=== PATIENT | male | born 1950 | race Caucasian/White ===

== ENCOUNTER 2017-05-14 16:51 | Inpatient (IN) | payer MEDICARE ==
[2017-05-14 17:26] LABS: #Eosinphils 0.3 thou/uL (0.0-0.7); #Lymphocytes 2.2 thou/uL (1.20-3.40); #Monocytes 0.8 thou/uL (0.11-0.59); #Neutrophils 5.8 thou/uL (1.40-6.50); %Basophils 0.5 % (0.0-1.0); %Eosinophils 2.8 % (0.0-10.0); %Lymphocytes 24.3 % (21.0-51.0); %Monocytes 8.3 % (0.0-10.0); Hematocrit 46.5 % (42.0-52.0); Mean Platelet Volume 7.9 fL (7.4-10.4); Red Blood Cell (RBC) Count 4.83 mill/uL (4.70-6.10); White Blood Cell (WBC) Count 9.1 thou/uL (4.8-10.8)
[2017-05-14 17:49] LABS: ALT (SGPT) 24 U/L (8-55); AST (SGOT) 16 U/L (5-34); Alkaline Phosphatase 46 U/L (40-150); Anion Gap 14 mmol/L (10-20); BUN (Urea Nitrogen) 10 mg/dL (8.4-25.7); Bilirubin, Total 0.6 mg/dL (0.2-1.2); CK (CPK) 99 U/L (30-200); Calc. Creatinine Clearance 0 mL/min (70-130); Calcium 9.5 mg/dL (7.8-10.44); Carbon Dioxide 24 mmol/L (23-31); Chloride 104 mmol/L (98-107); Estimated GFR-MDRD 74; Globulin 2.8 g/dL (2.4-3.5); Lipase 13 U/L (8-78)
[2017-05-14 17:53] LABS: Troponin I Less than 0.010 ng/mL (< 0.028)
--- NOTE | 2017-05-14 19:31 | RAD ---
AP PORTABLE VIEW CHEST 05/14/17 HISTORY: Chest pain. AP view chest is obtained on 05/14/17. Comparison made to previous exam of 12/17/16. AP view chest demonstrates EKG leads seen over the chest. The lungs are well aerated. No evidence of active intrathoracic disease seen. No evidence of effusions, pneumonia or pneumothorax seen. IMPRESSION: Unremarkable AP view chest. POS: [facility]
[2017-05-14 20:54] LABS: Troponin I Less than 0.010 ng/mL (< 0.028)
[2017-05-14] MEDS ORDERED: Acetaminophen 325 MG TAB PO PRN (21:23)
[2017-05-14] MEDS ORDERED: Ondansetron ODT 4 MG TAB SL PRN (21:23)
[2017-05-14] MEDS ORDERED: Ondansetron HCl/PF 4 MG/2 ML Vial IVP PRN (21:23)
[2017-05-14 21:28] VITALS: BMI 29.5
--- NOTE | 2017-05-14 21:33 | PDOC.EVN ---
Event Note - Event Note Event Note: [id number] H&P DICTATED 1. Chest pain 2. Headache 3. HTN plan; see orders
[2017-05-14] MEDS ORDERED: HYDROcodone/Acetaminophen 10/325 mg Tablet PO PRN (22:26)
[2017-05-14] MEDS ORDERED: Dextrose 50% Abboject 50 ML SYRINGE SLOW IVP PRN (22:27)
[2017-05-14] MEDS ORDERED: HumaLOG 300 UNITS/3 ML VIAL SC PRN ×2 (22:27)
[2017-05-14] MEDS ORDERED: Dextrose 5% in Water 1,000 ML IV PRN (22:27)
[2017-05-14 23:57] LABS: Troponin I Less than 0.010 ng/mL (< 0.028)
[2017-05-15] MEDS: Nitroglycerin 2% Ointment 1 INCH/1 GM Packet TOP SCH ×3 (03:48→21:31)
[2017-05-15 05:29] LABS: Troponin I Less than 0.010 ng/mL (< 0.028)
--- NOTE | 2017-05-15 06:13 | HP ---
DATE OF ADMISSION: 05/14/2017 CHIEF COMPLAINT: Chest pain, headache. HISTORY OF PRESENT ILLNESS: Patient is a 67-year-old male with past medical history of hypertension, hyperlipidemia, diabetes type 2, coronary artery disease, now came to the ER complaining of chest pa in. Patient started having chest pain this afternoon, substernal pressure kind of pain, radiated tow ards the left arm also. Pain lasted for few seconds. Pain resolved after taking sublingual nitrogly cerin, moderate in intensity. Denies any palpations, denies any dizziness, denies any sweating, nanci es nausea, vomiting. The patient complains of an episode of headache this morning associated with so me nausea, but headache resolved later on. Denies any fever, denies any chills, denies any complaint s. PAST MEDICAL HISTORY: As per HPI. PAST SURGICAL HISTORY: Left knee surgery, finger surgery. SOCIAL HISTORY: Positive for smoking, positive for alcohol. Denies any illicit drugs. FAMILY HISTORY: Positive for heart problems. REVIEW OF SYSTEMS: Constitutional: Denies any fever, denies any chills. Eyes: Denies any vision p roblems. Ears: Denies any hearing loss. Neck: Positive for neck pain. Cardiovascular system: Po sitive for chest pain. Respiratory system: Denies any cough. Denies any sputum production. Gastro intestinal system: Denies any nausea, vomiting. Musculoskeletal: Positive for left arm pain. Cran ial Nervous System: Denies syncope. Positive for headache. Psychiatric: Denies any depression, an xiety. All other review of systems are reviewed and are negative. PHYSICAL EXAMINATION: CONSTITUTIONAL/VITAL SIGNS: At the time of H&P performed, blood pressure is 130/70, pulse ox 97%, re spiratory rate 18. GENERAL: The patient appears comfortable. HEENT: Pupils equal, round, and reactive. Anterior nares patent. Nose normal. Teeth intact. Tong ue is moist. NECK: Supple, no JVD. CARDIOVASCULAR SYSTEM: S1, S2 present. Regular rate and rhythm. No murmurs, no rubs, no gallops. RESPIRATORY SYSTEM: No wheezing, no rhonchi. Breath sounds present bilaterally. GASTROINTESTINAL SYSTEM: Abdomen is soft, nontender, no guarding, no organomegaly, no masses felt. INTEGUMENTARY: No rashes seen. PSYCHIATRIC: Mood appropriate at this time. LABORATORY DATA: At the time of H&P performed white count 9.1, hemoglobin 15.7, platelet count is 19 4. BMP shows sodium 138, potassium 4.2, chloride of 104, CO2 of 24, BUN of 10, creatinine 1. ASSESSMENT AND PLAN: The patient is 67-year-old male, 1. Chest pain, need to rule out cardiac etiology. Plan to check cardiac enzymes. Plan to consult _ ____. Plan to monitor the patient closely. 2. Hypertension. Monitor blood pressure. Continue blood pressure medications. 3. History of hyperlipidemia. Continue statin. 4. History of diabetes mellitus, type 2. Monitor blood sugars. We will do insulin sliding scale. 5. History of coronary artery disease. Continue aspirin. Case was discussed in detail with the patient.
[2017-05-15] MEDS: Aspirin 325 MG TAB PO SCH (08:46)
[2017-05-15] MEDS: Carvedilol 3.125 MG TAB PO SCH (08:46)
[2017-05-15] MEDS: Atorvastatin Calcium 40 MG TAB PO SCH (08:47)
[2017-05-15] MEDS ORDERED: FLU VACC TS2017-18 (>65YR) 0.5 ML SYRINGE IM ONE (09:00)
--- NOTE | 2017-05-15 12:34 | CON ---
DATE OF CONSULTATION: 05/15/2017 REASON FOR CONSULTATION: Unstable angina. HISTORY OF PRESENT ILLNESS: Mr. Umaña is a 67-year-old gentleman with history of chest pain with abno rmal stress test, who presented with chest pressure at rest yesterday. Mr. Umaña is 67 years of age. He was at rest, started having a dull ache in the left side of his ches t and went to the left shoulder and left arm. He took nitroglycerin, but the discomfort did not reso lve quickly. He was brought in by ambulance and the discomfort is now resolved. The patient is feeling better now and wants to go home. MEDICATIONS: 1. Carvedilol 3.125 mg twice a day. 2. Vasotec 10 mg a day. 3. Metformin. 4. Atorvastatin 80 mg daily. 5. Gabapentin. 6. Nitroglycerin. 7. Aspirin. ALLERGIES: None known. REVIEW OF SYSTEMS: CONSTITUTIONAL: No significant weight gain or loss. VISION: No changes. HEARING: No changes. PULMONARY: No cough or wheezing. GASTROINTESTINAL: No nausea, vomiting, diarrhea. SKIN: No rashes. NEUROLOGIC: No unilateral weakness or numbness. PSYCHIATRIC: No unusual depression or anxiety. PHYSICAL EXAMINATION: GENERAL: This is a pleasant 67-year-old man in no distress. VITAL SIGNS: Blood pressure 130/80, pulse 62 and regular. HEENT: Eyes: Sclerae nonicteric. Mouth: Mucous membranes moist. NECK: Supple, no lymphadenopathy. LUNGS: Clear. No wheezing, rales or rhonchi. CARDIAC: Normal S1, normal S2. There is no murmur, rub or gallop. ABDOMEN: Soft, nontender. EXTREMITIES: There is no edema. PERTINENT LABORATORY: Troponin levels were negative. LDL cholesterol is 48. EKG sinus bradycardia, otherwise normal. ASSESSMENT: 1. Clinically, unstable angina. 2. Previously abnormal stress test, cardiac catheterization was advised to decline. 3. Diabetes. 4. Hypercholesterolemia. PLAN: Recommend cardiac catheterization, he initially declines. Now, he states he wishes to further think about it and he is not n.p.o. this morning, he was drinking coffee, will need to be done tomor row. If he decides to leave, we would add Plavix 300 mg loading dose, then 75 mg a day. We will edwin it the patient's decision.
[2017-05-15] MEDS ORDERED: Enoxaparin Sodium 100 MG/ML SYRINGE SC SCH (13:00)
[2017-05-15] MEDS ORDERED: Communication Order-Pharmacy FS SCH (13:00)
--- NOTE | 2017-05-15 13:51 | PDOC.PN ---
- Subjective Encounter Start Date: 05/15/17 Encounter Start Time: 13:49 Subjective: feels well. no chest pain/sob/meyers. -: agrres to undergo cardiac Cath - Objective MAR Reviewed: Yes Result Diagrams: 05/14/17 17:13 05/14/17 17:13 Additional Labs: Laboratory Tests 05/14/17 05/14/17 05/14/17 17:13 20:21 22:52 Troponin I Less than 0.010 Less than 0.010 Less than 0.010 05/15/17 04:13 Troponin I Less than 0.010 Phys Exam - Physical Examination Constitutional: NAD HEENT: PERRLA, moist MMs, sclera anicteric, oral pharynx no lesions Neck: no nodes, no JVD, supple, full ROM Respiratory: no wheezing, no rales, no rhonchi, clear to auscultation bilateral Cardiovascular: RRR, no significant murmur Gastrointestinal: soft, non-tender, no distention, positive bowel sounds Musculoskeletal: no edema, pulses present Neurological: non-focal, normal sensation, moves all 4 limbs Psychiatric: normal affect, A&O x 3 Skin: no rash Dx/Plan (1) Unstable angina Status: Acute (2) CAD (coronary artery disease) Code(s): I25.10 - ATHSCL HEART DISEASE OF [place] CORONARY ARTERY W/O ANG PCTRS Status: Chronic Qualifiers: [place] vs. transplanted heart: [place] heart (3) HTN (hypertension) Code(s): I10 - ESSENTIAL (PRIMARY) HYPERTENSION Status: Chronic (4) DM2 (diabetes mellitus, type 2) Status: Chronic Qualifiers: Diabetes mellitus complication status: with hyperglycemia - Plan out of bed/ambulate, DVT proph w/SCDs Cardiac cath tomorrow.appreciate cardiology inpit. -: heemodynamically stable.cont ASA,statin,BB,duglas-I. -: Unsafe to discharge due to unstable angina.will change to inpatient -: am labs * . Review of Systems - Review of Systems Constitutional: negative: Fever, Chills, Sweats, Weakness, Malaise, Other Respiratory: negative: Cough, Dry, Shortness of Breath, Hemoptysis, SOB with Excertion, Pleuritic Pain, Sputum, Wheezing Cardiovascular: negative: Chest Pain, Palpitations, Orthopnea, Paroxysmal Noc. Dyspnea, Edema, Light Headedness, Other Gastrointestinal: negative: Nausea, Vomiting, Abdominal Pain, Diarrhea, Constipation, Melena, Hematochezia, Other Genitourinary: negative: Dysuria, Frequency, Incontinence, Hematuria, Retention , Other Musculoskeletal: negative: Neck Pain, Shoulder Pain, Arm Pain, Back Pain, Hand Pain, Leg Pain, Foot Pain, Other Neurological: negative: Weakness, Numbness, Incoordination, Change in Speech, Confusion, Seizures, Other - Medications/Allergies Allergies/Adverse Reactions: Allergies Allergy/AdvReac Type Severity Reaction Status Date / Time No Known Allergies Allergy Verified 05/14/17 21:14 Medications: Current Medications Hydrocodone Bitart/Acetaminophen ([place] 10/325) 1 tab PO Q8HR PRN PRN Reason: Pain 7-10 Aspirin (Aspirin) 325 mg PO DAILY [facility] Last Admin: 05/15/17 08:46 Dose: 325 mg Atorvastatin Calcium (Lipitor) 80 mg PO DAILY [facility] Last Admin: 05/15/17 08:47 Dose: 80 mg Carvedilol (Coreg) 3.125 mg PO DAILY [facility] Last Admin: 05/15/17 08:46 Dose: 3.125 mg Dextrose/Water (Dextrose 50%) 25 gm SLOW IVP PRN PRN PRN Reason: Hypoglycemia Diazepam (Valium) 5 mg PO ONE [facility] Stop: 05/16/17 23:59 Enalapril Maleate (Vasotec) 10 mg PO DAILY [facility] Last Admin: 05/15/17 08:47 Dose: 10 mg Enoxaparin Sodium (Lovenox) 100 mg SC NOW [facility] Stop: 05/15/17 15:00 Glucagon (Glucagon) 1 mg IM PRN PRN PRN Reason: Hypoglycemia Dextrose/Water (D5w) 1,000 mls @ 0 mls/hr IV .Q0M PRN; As Directed PRN Reason: Hypoglycemia Sodium Chloride (Normal Saline 0.9%) 1,000 mls @ 100 mls/hr IV .Q10H [facility] Insulin Human Lispro (Humalog) 0 units SC .MODERATE SLIDING SC PRN PRN Reason: Moderate Correctional Scale Insulin Human Lispro (Humalog) 0 units SC .BEDTIME SLIDING SC PRN PRN Reason: Bedtime Correctional Scale Miscellaneous Information (Communication Order-Pharmacy) 0 each FS ONE [facility] Stop: 05/15/17 23:59 Nitroglycerin (Nitro-Bid 2% Ointment) 0.5 inch TOP Q8HR [facility] Last Admin: 05/15/17 03:48 Dose: Not Given Sodium Chloride (Flush - Normal Saline) 10 ml IVF Q12HR [facility] Sodium Chloride (Flush - Normal Saline) 10 ml IVF PRN PRN PRN Reason: Saline Flush
[2017-05-15] MEDS ORDERED: Nicotine 14 MG PATCH TD SCH (17:00)
[2017-05-16 04:44] LABS: #Basophils 0.1 thou/uL (0.0-0.2); #Eosinphils 0.3 thou/uL (0.0-0.7); #Lymphocytes 2.8 thou/uL (1.20-3.40); #Monocytes 0.9 thou/uL (0.11-0.59); #Neutrophils 3.8 thou/uL (1.40-6.50); %Basophils 0.8 % (0.0-1.0); %Eosinophils 3.7 % (0.0-10.0); %Lymphocytes 35.7 % (21.0-51.0); %Monocytes 10.9 % (0.0-10.0); Hematocrit 44.2 % (42.0-52.0); Red Blood Cell (RBC) Count 4.59 mill/uL (4.70-6.10); White Blood Cell (WBC) Count 7.8 thou/uL (4.8-10.8)
[2017-05-16 05:01] LABS: Anion Gap 13 mmol/L (10-20); BUN (Urea Nitrogen) 12 mg/dL (8.4-25.7); Calc. Creatinine Clearance 98 mL/min (70-130); Calcium 9.5 mg/dL (7.8-10.44); Carbon Dioxide 25 mmol/L (23-31); Chloride 107 mmol/L (98-107); Estimated GFR-MDRD Greater than 90
[2017-05-16] MEDS: Aspirin 325 MG TAB PO SCH (05:24)
[2017-05-16] MEDS: Sodium Chloride 0.9% 1,000 ML IV SCH ×2 (05:24→11:18)
[2017-05-16] MEDS: Atorvastatin Calcium 40 MG TAB PO SCH (05:24)
[2017-05-16] MEDS: Carvedilol 3.125 MG TAB PO SCH (05:25)
[2017-05-16] MEDS: Nitroglycerin 2% Ointment 1 INCH/1 GM Packet TOP SCH ×2 (05:25→13:28)
[2017-05-16] MEDS ORDERED: Diazepam 5 MG TAB PO SCH (06:00)
[2017-05-16] MEDS ORDERED: Heparin 1000 UNIT/NS 500ML(OR) 500 ML ONE (08:59)
[2017-05-16] MEDS ORDERED: Midazolam HCl 2 mg/2 ml Vial ONE (09:42)
[2017-05-16] MEDS ORDERED: Fentanyl 100 MCG/2 ML VIAL ONE (09:43)
[2017-05-16] MEDS ORDERED: Nitroglycerin 100MG/250ML BOT 250 ML ONE (09:59)
[2017-05-16] MEDS ORDERED: Nitroglycerin 0.4 MG TAB (25 Tab Bottle) SL PRN (10:39)
[2017-05-16] MEDS ORDERED: traMADol HCl 50 MG TAB PO PRN (10:39)
[2017-05-16] MEDS ORDERED: Acetaminophen/Codeine 30-300mg Tablet PO PRN ×2 (10:39)
[2017-05-16] MEDS ORDERED: Sodium Chloride 0.9% 200 ML IV SCH (10:45)
--- NOTE | 2017-05-16 13:20 | PDOC.PN ---
- Subjective Encounter Start Date: 05/16/17 Encounter Start Time: 13:16 Subjective: feels well. eager to go home. -: s/p cath today.no new complaints - Objective MAR Reviewed: Yes Vital Signs & Weight: Vital Signs (12 hours) Temp Pulse Resp BP Pulse Ox 05/16/17 10:45 98.4 F 54 L 18 139/85 94 L 05/16/17 07:15 98.1 F 61 19 148/79 H 95 05/16/17 07:06 98.1 F 61 19 95 05/16/17 04:00 97.6 F 63 14 148/92 H 93 L Weight Weight 179 lb 3.2 oz I&O: 05/15/17 05/16/17 05/17/17 06:59 06:59 06:59 Intake Total 360 Balance 360 Result Diagrams: 05/16/17 04:29 05/16/17 04:29 Additional Labs: Accuchecks 05/16/17 05/15/17 05:53 21:01 POC Glucose 135 H 125 H Phys Exam - Physical Examination Constitutional: NAD HEENT: PERRLA, moist MMs, sclera anicteric, oral pharynx no lesions Neck: no nodes, no JVD, supple, full ROM Respiratory: no wheezing, no rales, no rhonchi, clear to auscultation bilateral Cardiovascular: RRR, no significant murmur Gastrointestinal: soft, non-tender, no distention, positive bowel sounds Musculoskeletal: no edema, pulses present Neurological: non-focal, normal sensation, moves all 4 limbs Psychiatric: normal affect, A&O x 3 Skin: no rash Dx/Plan (1) Unstable angina Status: Acute (2) CAD (coronary artery disease) Code(s): I25.10 - ATHSCL HEART DISEASE OF [place] CORONARY ARTERY W/O ANG PCTRS Status: Chronic Qualifiers: [place] vs. transplanted heart: [place] heart (3) HTN (hypertension) Code(s): I10 - ESSENTIAL (PRIMARY) HYPERTENSION Status: Chronic (4) DM2 (diabetes mellitus, type 2) Status: Chronic Qualifiers: Diabetes mellitus complication status: with hyperglycemia - Plan DVT proph w/SCDs Home later today if feels Ok. per cardiology. -: medical mangement. -: on cardioprudent meds as below * . Review of Systems - Review of Systems Constitutional: negative: Fever, Chills, Sweats, Weakness, Malaise, Other Respiratory: negative: Cough, Dry, Shortness of Breath, Hemoptysis, SOB with Excertion, Pleuritic Pain, Sputum, Wheezing Cardiovascular: negative: Chest Pain, Palpitations, Orthopnea, Paroxysmal Noc. Dyspnea, Edema, Light Headedness, Other Gastrointestinal: negative: Nausea, Vomiting, Abdominal Pain, Diarrhea, Constipation, Melena, Hematochezia, Other Genitourinary: negative: Dysuria, Frequency, Incontinence, Hematuria, Retention , Other Musculoskeletal: negative: Neck Pain, Shoulder Pain, Arm Pain, Back Pain, Hand Pain, Leg Pain, Foot Pain, Other Neurological: negative: Weakness, Numbness, Incoordination, Change in Speech, Confusion, Seizures, Other - Medications/Allergies Allergies/Adverse Reactions: Allergies Allergy/AdvReac Type Severity Reaction Status Date / Time No Known Allergies Allergy Verified 05/14/17 21:14 Medications: Current Medications Acetaminophen/Codeine Phosphate (Tylenol #3) 1 tab PO Q4H PRN PRN Reason: Mild Pain (1-3) Acetaminophen/Codeine Phosphate (Tylenol #3) 2 tab PO Q4H PRN PRN Reason: Moderate Pain (4-6) Hydrocodone Bitart/Acetaminophen ([place] 10/325) 1 tab PO Q8HR PRN PRN Reason: Pain 7-10 Aspirin (Aspirin) 325 mg PO DAILY [facility] Last Admin: 05/16/17 05:24 Dose: 325 mg Atorvastatin Calcium (Lipitor) 80 mg PO DAILY [facility] Last Admin: 05/16/17 05:24 Dose: 80 mg Carvedilol (Coreg) 3.125 mg PO DAILY [facility] Last Admin: 05/16/17 05:25 Dose: 3.125 mg Clopidogrel Bisulfate (Plavix) 300 mg PO 1400 [facility] Stop: 05/16/17 16:00 Clopidogrel Bisulfate (Plavix) 75 mg PO DAILY [facility] Dextrose/Water (Dextrose 50%) 25 gm SLOW IVP PRN PRN PRN Reason: Hypoglycemia Diazepam (Valium) 5 mg PO ONE [facility] Stop: 05/16/17 23:59 Last Admin: 05/16/17 08:56 Dose: 5 mg Enalapril Maleate (Vasotec) 10 mg PO DAILY [facility] Last Admin: 05/16/17 05:25 Dose: 10 mg Glucagon (Glucagon) 1 mg IM PRN PRN PRN Reason: Hypoglycemia Dextrose/Water (D5w) 1,000 mls @ 0 mls/hr IV .Q0M PRN; As Directed PRN Reason: Hypoglycemia Sodium Chloride (Normal Saline 0.9%) 1,000 mls @ 100 mls/hr IV .Q10H [facility] Last Admin: 05/16/17 11:18 Dose: 1,000 mls Sodium Chloride (Normal Saline 0.9%) 200 mls @ 0 mls/hr IV ONE [facility] PRN Reason: As Directed Stop: 05/17/17 10:46 Insulin Human Lispro (Humalog) 0 units SC .MODERATE SLIDING SC PRN PRN Reason: Moderate Correctional Scale Insulin Human Lispro (Humalog) 0 units SC .BEDTIME SLIDING SC PRN PRN Reason: Bedtime Correctional Scale Nicotine (Nicoderm Patch) 14 mg TD Q24HR [facility] Last Admin: 05/15/17 17:38 Dose: Not Given Nitroglycerin (Nitro-Bid 2% Ointment) 0.5 inch TOP Q8HR [facility] Last Admin: 05/16/17 05:25 Dose: Not Given Nitroglycerin (Nitrostat) 0.4 mg SL Q5MIN PRN PRN Reason: Chest Pain Sodium Chloride (Flush - Normal Saline) 10 ml IVF Q12HR [facility] Last Admin: 05/16/17 05:25 Dose: 10 ml Sodium Chloride (Flush - Normal Saline) 10 ml IVF PRN PRN PRN Reason: Saline Flush Tramadol HCl (Ultram) 50 mg PO Q6H PRN PRN Reason: Moderate Pain (4-6)
[2017-05-16] MEDS ORDERED: Clopidogrel Bisulfate 300 MG TAB PO SCH (14:00)
[2017-05-16 15:30] VITALS: BP 146/76; TEMP 98.5
[2017-05-16] MEDS ORDERED: Iopamidol 370 76% 100 ML VIAL ONE (16:14)
--- NOTE | 2017-05-17 01:18 | DIS ---
PRIMARY CARE PHYSICIAN: Kushal Lee M.D. DATE OF ADMISSION: 05/14/2017 DATE OF DISCHARGE: 05/16/2017 CARDIOLOGY: Dr. Moreira. CONDITION AT THE TIME OF DISCHARGE: Stable and improved. DISCHARGE DIAGNOSES: 1. Unstable angina. 2. Coronary artery disease. 3. Hypertension. 4. Diabetes mellitus type 2. DISCHARGE MEDICATIONS: Aspirin 81 mg daily, Plavix 75 mg daily, sublingual nitroglycerin every 5 min utes as needed for chest pain, carvedilol 3.125 mg p.o. daily, Vasotec 10 mg daily, hydrocodone as ne eded. Metformin 1000 mg p.o. b.i.d. The patient is instructed to restart metformin from tomorrow. PROCEDURES DONE IN THE HOSPITAL: Include cardiac catheterization, which showed LVEF at 60%. 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 His diagonal branch has 80% lesion. There is a distal lesio n in the circumflex small vessel as well. Medical therapy is advised. HISTORY OF PRESENTING ILLNESS: Mr. Umaña is a pleasant 67-year-old male with known history of coronar y artery disease and ongoing unstable angina who came to the hospital with complaints of chest pain a gain. The patient did report that he was told that he needed a cardiac catheterization, but never fo llowed up. He was admitted for further workup. His cardiac enzymes were unremarkable at the time of presentation and the patient was hemodynamically stable. Please see admission history and physical for further details. HOSPITAL COURSE: Cardiology was consulted as the patient was seem to have unstable angina and it was appropriate that he undergo a cardiac catheterization that was overdue. Dr. Moreira saw the patient and the patient was unsure, but eventually agreed to undergo the catheterization. It showed diffuse disease and medical management was recommended. He was started on low dose aspirin and was started o n Plavix as well. He was given a loading dose of Plavix during the time of catheterization. Otherwise, the patient remained hemodynamically stable and tolerated the procedure very well. He tatiana l be discharged shortly after his bed rest is over. All new the prescriptions were sent to his pharm acy and discharge plan was discussed with the patient who verbalized understanding and he is eager to go home. He was seen and examined prior to discharge and he is hemodynamically stable, awake, alert , oriented. Please see hospitalist progress note from today's date for further details including fac e-to-face interaction.
[2017-05-17] MEDS ORDERED: Clopidogrel Bisulfate 75 MG TAB PO SCH (09:00)
== END 2017-05-16 16:05 | disposition home or self-care (01) | DRG 287 ==
LOC: ERS 16:51 → 2SW 18:20 → OBSVTOIN 05-15 13:10 → 2NO 05-15 17:30
PROVIDERS: ADMIT Internal Medicine Infectious Disease; ATTEND Internal Medicine Infectious Disease
PROC: 4A023N7 Measurement of Cardiac Sampling and Pressure, Left Heart, Percutaneous Approach (ICD-10-PCS; principal; 2017-05-16)
PROC: B2111ZZ Fluoroscopy of Multiple Coronary Arteries using Low Osmolar Contrast (ICD-10-PCS; 2017-05-16)
PROC: B2151ZZ Fluoroscopy of Left Heart using Low Osmolar Contrast (ICD-10-PCS; 2017-05-16)
DX: I25.110 Atherosclerotic heart disease of native coronary artery with unstable angina pectoris (principal); I25.3 Aneurysm of heart; E11.65 Type 2 diabetes mellitus with hyperglycemia; I10 Essential (primary) hypertension; E78.00 Pure hypercholesterolemia, unspecified; F17.210 Nicotine dependence, cigarettes, uncomplicated; Z79.84 Long term (current) use of oral hypoglycemic drugs
CPT/HCPCS: 36415; 36416; 71010; 76942; 80048; 80053; 80061; 82550; 82553; 83690; 84484; 85025; 93005; 93458; 93798; 94760; 99152; 99153; A4216; C1769; J1644; J1650; J2250; J3010

== ENCOUNTER 2018-10-19 14:06 | Emergency (ER) | payer MEDICARE ==
[2018-10-19 14:47] LABS: #Basophils 0.1 thou/uL (0.0-0.2); #Eosinphils 0.3 thou/uL (0.0-0.7); #Lymphocytes 2.1 thou/uL (1.20-3.40); #Monocytes 0.6 thou/uL (0.11-0.59); #Neutrophils 5.6 thou/uL (1.40-6.50); %Basophils 0.6 % (0.0-1.0); %Eosinophils 3.6 % (0.0-10.0); %Lymphocytes 24.3 % (21.0-51.0); %Monocytes 7.1 % (0.0-10.0); %Neutrophils 64.3 % (42.0-75.0); Hemoglobin 15.3 g/dL (14.0-18.0); Mean Corpuscular HGB CONC 33.6 g/dL (32.0-36.0); Mean Corpuscular Hemoglobin 31.7 pg (27.0-31.0); Mean Corpuscular Volume 94.5 fL (78.0-98.0); Mean Platelet Volume 8.1 fL (7.4-10.4); Platelet Count 172 thou/uL (130-400); RBC Distribution Width 12.9 % (11.5-14.5); Red Blood Cell (RBC) Count 4.83 mill/uL (4.70-6.10); White Blood Cell (WBC) Count 8.8 thou/uL (4.8-10.8)
--- NOTE | 2018-10-19 14:49 | RAD ---
PORTABLE CHEST: HISTORY: Mental status change. FINDINGS: The lungs appear clear. Heart size upper normal. Vasculature within normal range. IMPRESSION: No acute process. POS: OFF
[2018-10-19 15:07] LABS: ALT (SGPT) 19 U/L (8-55); AST (SGOT) 14 U/L (5-34); Acetaminophen Less than 6.0 mcg/mL (10.0-30.0); Albumin 4.3 g/dL (3.4-4.8); Alcohol Less than 10 mg/dL (Less than 10); Alkaline Phosphatase 53 U/L (40-150); Anion Gap 13 mmol/L (10-20); BUN (Urea Nitrogen) 12 mg/dL (8.4-25.7); Bilirubin, Total 0.6 mg/dL (0.2-1.2); CK (CPK) 72 U/L (30-200); Calc. Creatinine Clearance 0 mL/min (70-130); Calcium 9.6 mg/dL (7.8-10.44); Carbon Dioxide 25 mmol/L (23-31); Chloride 107 mmol/L (98-107); Estimated GFR-MDRD 63; Globulin 2.7 g/dL (2.4-3.5); Glucose 230 mg/dL (80-115); Potassium 4.1 mmol/L (3.5-5.1); Salicylate Less than 8.0 mg/dL (15.0-30.0); Sodium 141 mmol/L (136-145)
--- NOTE | 2018-10-19 15:16 | CT ---
CT HEAD WITHOUT CONTRAST: Multiple axial tomograms are obtained through the head without IV enhancement. INDICATION: Mental status change. COMPARISON: No comparison study available. FINDINGS: There is encephalomalacia involving the inferior right frontal lobe. Ventricles have normal size and position. There is no evidence of intracranial mass or hemorrhage. No evidence of acute infarct. The sinuses and mastoids are clear. There is a tiny mucous retention cyst along the posterior wall o f the left maxillary sinus. IMPRESSION: 1. Volume loss involving the inferior right frontal lobe indicating a remote insult. 2. No acute process. POS: OFF
[2018-10-19 15:44] LABS: Bilirubin Negative (Negative); Blood, Urine Negative (Negative); Clarity CLEAR (Clear); Glucose, Urine (Dipstick) Negative (Negative); Leukocyte Negative (Negative); Nitrite Negative (Negative); Protein, Urine (Dipstick) Negative (Neg-Trace); Specific Gravity, Urine 1.006 (1.002-1.036); Urobilinogen 0.2 mg/dL (0.2-1.0); pH, Urine 5.5 (5.0-9.0)
[2018-10-19 15:56] LABS: Amphetamine Not Detected (NotDetected); Barbiturates Screen Not Detected (NotDetected); Benzodiazepine Screen Not Detected (NotDetected); Cocaine Metabolite Screen Not Detected (NotDetected); Medtox Control Line Valid? VALID (VALID); Medtox Reader # READER 1; Methadone Not Detected (NotDetected); Methamphetamine Not Detected (NotDetected); Opiate Screen Detected (NotDetected); Oxycodone Screen Not Detected (NotDetected); Phencyclidine (PCP) Not Detected (NotDetected); THC/Cannabinoid Screen Detected (NotDetected); Tricyclic Screen Not Detected (NotDetected)
[2018-10-19] MEDS ORDERED: Metoclopramide HCl 10 MG/2 ML VIAL ONE (17:49)
[2018-10-19] MEDS ORDERED: Meclizine HCl 25 MG TAB ONE (17:49)
== END 2018-10-19 19:59 | disposition home or self-care (01) ==
LOC: ERS 14:06
DX: R53.1 Weakness (principal); E11.9 Type 2 diabetes mellitus without complications; E78.5 Hyperlipidemia, unspecified; I10 Essential (primary) hypertension; F17.210 Nicotine dependence, cigarettes, uncomplicated; Z86.73 Personal history of transient ischemic attack (TIA), and cerebral infarction without residual deficits; Z79.84 Long term (current) use of oral hypoglycemic drugs; Z79.899 Other long term (current) drug therapy; Z79.02 Long term (current) use of antithrombotics/antiplatelets
CPT/HCPCS: 36415; 70450; 71045; 80053; 80306; 80307; 81003; 82550; 83605; 83880; 84443; 85025; 87086; 96361; 96365; J2765; J8499